=== PATIENT | female | born 1970 | race Caucasian/White ===

== ENCOUNTER 2016-11-07 10:19 | Inpatient (IN) | payer BC ==
[2016-11-01 09:17] VITALS: BMI 31.9
[2016-11-07] MEDS ORDERED: MIDAZOLAM HCL 2 MG/2 ML SINGLE DOSE VIAL ONE (12:28)
[2016-11-07] MEDS ORDERED: DEXAMETHASONE SOD PHOSPHATE/PF 10 MG/ML SDV ONE (12:28)
[2016-11-07] MEDS ORDERED: BUPIVACAINE HCL/PF 2.5 MG/ML - 30 ML VIAL IJ ONE (12:28)
[2016-11-07] MEDS ORDERED: DOCUSATE SODIUM 100 MG CAPSULE (FP) PO PRN (12:53)
[2016-11-07] MEDS ORDERED: morphine CARPU-JECT 4 MG/1 ML DISP.SYRIN IVPB PRN (12:54)
[2016-11-07] MEDS ORDERED: ACETAMINOPHEN 325 MG TABLET (FP) PO PRN (12:54)
[2016-11-07] MEDS ORDERED: IBUPROFEN 800 MG/8 ML IJ IVPB PRN (12:56)
[2016-11-07] MEDS ORDERED: D5-1/2NS+20 MEQ KCL - 1,000 ML IV SCH (13:00)
[2016-11-07] MEDS ORDERED: LEVOFLOXACIN 500 MG IVPB 100 ML IVPB ONE (13:10)
[2016-11-07] MEDS ORDERED: HYDROmorphone HCL/PF 1 MG/ML VIAL (FOR PYXIS CHARGING ONLY) ONE (14:52)
[2016-11-07] MEDS ORDERED: ROCURONIUM BROMIDE 50 MG/5 ML VIAL ONE (14:56)
[2016-11-07] MEDS ORDERED: ONDANSETRON 4 MG/2 ML VIAL ONE (15:36)
[2016-11-07] MEDS ORDERED: DEXAMETHASONE SOD PHOSPHATE 4 MG/1 ML VIAL ONE (15:36)
[2016-11-07] MEDS ORDERED: GLYCOPYRROLATE 0.2 MG/1 ML VIAL ONE (15:36)
[2016-11-07] MEDS ORDERED: NEOSTIGMINE METHYLSULFATE 0.5 MG/ML - 10 ML MDV ONE ×2 (15:36→15:37)
[2016-11-07] MEDS ORDERED: LIDOCAINE HCL/PF 2% SDV 5ML VIAL ONE (15:36)
[2016-11-07] MEDS ORDERED: LACTATED RINGERS SOLUTION 1,000 ML IV SCH (16:00)
[2016-11-07] MEDS ORDERED: PROMETHAZINE HCL 25 MG/1 ML VIAL IVPUSH PRN (16:29)
[2016-11-07] MEDS: traMADol HCL 50 MG TABLET PO SCH ×2 (18:48→22:12)
[2016-11-07] MEDS: ONDANSETRON 4 MG/2 ML VIAL IVPB PRN (20:29)
[2016-11-07] MEDS: oxyCODONE HCL 5 MG TABLET PO PRN (20:30)
[2016-11-07] MEDS ORDERED: ONDANSETRON 4 MG/2 ML VIAL IVPB ONE (22:45)
[2016-11-08] MEDS: oxyCODONE HCL 5 MG TABLET PO PRN (01:44)
[2016-11-08] MEDS: ONDANSETRON 4 MG/2 ML VIAL IVPB PRN (03:18)
[2016-11-08] MEDS: traMADol HCL 50 MG TABLET PO SCH ×3 (04:10→10:00)
[2016-11-08 05:41] VITALS: BP 94/58; PULSE 89; TEMP 98.6
--- NOTE | 2016-11-08 07:32 | PN ---
Progress Note, Physician Chief Complaint: Pt s/p panniculectomy with c/o nausea overnight. Pain controlled. History of Present Illness: POD # s/p Panniculectomy - Current Medication List Current Medications: Active Medications Acetaminophen (Tylenol -) 650 mg PO Q4H PRN PRN Reason: FEVER OR PAIN Last Admin: 11/07/16 20:30 Dose: 650 mg Docusate Sodium (Colace -) 100 mg PO DAILY PRN PRN Reason: CONSTIPATION Enoxaparin Sodium (Lovenox -) 40 mg SQ DAILY [facility] Escitalopram Oxalate (Lexapro -) 20 mg PO DAILY [facility] Fentanyl (Sublimaze Injection -) 50 mcg IVPUSH [id number] PRN PRN Reason: PAIN Stop: 11/10/16 15:49 Last Admin: 11/07/16 17:00 Dose: 50 mcg Fentanyl (Sublimaze Injection -) 25 mcg IVPUSH [id number] PRN PRN Reason: PAIN Stop: 11/10/16 16:30 Pantoprazole Sodium (Protonix 40mg Ivpb (Pre-Docked)) 100 mls @ 200 mls/hr IVPB DAILY [facility] Potassium Chloride/Dextrose/Sod Cl (D5-1/2ns+20 Meq Kcl -) 1,000 mls @ 100 mls/ hr IV ASDIR [facility] Last Admin: 11/07/16 18:48 Dose: Not Given Lactated Ringer's (Lactated Ringers Solution) 1,000 mls @ 75 mls/hr IV ASDIR [facility] Last Admin: 11/07/16 18:48 Dose: Not Given Ibuprofen (Caldolor Injection -) 800 mg IVPB Q6H PRN PRN Reason: PAIN Morphine Sulfate (Morphine Injection -) 8 mg IVPB Q3H PRN PRN Reason: PAIN Ondansetron HCl (Zofran Injection) 4 mg IVPB Q6H PRN PRN Reason: NAUSEA Last Admin: 11/08/16 03:18 Dose: 4 mg Oxycodone HCl (Roxicodone -) 7.5 mg PO Q4H PRN PRN Reason: PAIN Last Admin: 11/08/16 01:44 Dose: 7.5 mg Tramadol HCl (Ultram -) 50 mg PO Q6H [facility] Last Admin: 11/08/16 04:10 Dose: Not Given - Objective Vital Signs: Vital Signs Temperature 98.6 F 08/03/17 05:39 Pulse Rate 89 11/08/16 05:39 Respiratory Rate 18 11/08/16 05:39 Blood Pressure 94/58 11/08/16 05:39 O2 Sat by Pulse Oximetry (%) 98 11/07/16 22:56 Constitutional: Yes: Well Nourished, Mild Distress Eyes: Yes: WNL HENT: Yes: WNL Neck: Yes: WNL Cardiovascular: Yes: WNL Respiratory: Yes: WNL Gastrointestinal: Yes: WNL, Normal Bowel Sounds, Soft, Other (Incision c/D/I. Dressing steri strips in place. FAIZA drains holding suction) ...Rectal Exam: Yes: Deferred Breast(s): Yes: WNL Musculoskeletal: Yes: WNL Extremities: Yes: WNL Edema: No Peripheral Pulses WNL: No Integumentary: Yes: WNL Wound/Incision: Yes: Clean/Dry, Steri Strips ...Motor Strength: WNL Psychiatric: Yes: WNL Additional Findings/Remarks: cont with abdominal binder cont with anti nausea cont with pain management Possible d/c home today
--- NOTE | 2016-11-08 08:49 | OP ---
DATE OF OPERATION: 11/07/2016 PREOPERATIVE DIAGNOSIS: Complex, chronically incarcerated incisional hernia. POSTOPERATIVE DIAGNOSIS: Complex, chronically incarcerated incisional hernia. PROCEDURE: Open repair of complex chronically incarcerated incisional hernia with mesh, bilateral component separation. SURGEON: Matthew Brooks MD BILINGUAL CASE MANAGER: Milind Luo DO ANESTHESIA: Juanita Mcdaniel MD (general). ESTIMATED BLOOD LOSS: Minimal. SPECIMEN: None. INDICATION FOR PROCEDURE: This is a 46-year-old female who complains of having pain in the mid abdomen. She also feels a fullness in this area as well. She went to several physicians and is noted to have a chronically incarcerated incisional hernia from her old laparoscopic cholecystectomy. She came to see me, and on physical examination due to her body habitus, had a paucity of findings; therefore, I ordered a CAT scan. The CT demonstrated findings consistent with a chronically incarcerated hernia. Therefore, she is here for operative repair. The patient also has seen a plastic surgery, Dr. Wilson, for a concomitant abdominoplasty. This will be done at the same setting. DESCRIPTION OF PROCEDURE: The patient was identified and appropriately positioned on the operating room table. After placement of general anesthesia, the abdomen was prepped and draped in the usual sterile fashion with ChloraPrep. Dr. Wilson then proceeded to perform portions of the abdominoplasty and give operative exposure. Once this was accomplished, I can in then to repair the hernia. At the time of my presentation in the operating room, the abdominal wall had been lifted off the anterior abdominal wall fashion. The defect in the fascia in the midline was identified. She had no defects overlying the trocar sites. The umbilicus was off the subcutaneous tissue and the defect clearly identified. Using an above technique without entering the abdominal cavity, the hernia identified and scored along its lateral edges. The rectus muscles were identified and retracted laterally and the posterior rectus sheath was identified. Using blunt dissection, the posterior sheath was off the undersurface of the rectus muscle. This was done on the patient's right side. Using a similar technique, the left side was evaluated and done as well. Due to the diastasis, the midline had to be sharply and the fascial bridges divided. This was done inferiorly first, and the superior aspect had a bigger diastasis. This was done in a similar fashion, and the insertions on either side were then sharply divided. Once this was completely circumferentially isolated and the sac reduced back beneath the rectus, the defect identified and measured to be at least 7.5 to 8 cm in size. Due to this generous defect, a large 15 x 30 piece of ProGrip was used for the operative repair as well as a 15 x 12 Ovitex bio mesh. Due to the generous size of this defect, to lay this in appropriately without having tension and to have this spread out beyond the weak , frayed out fibers, component separation and transversus abdominis release was performed on either side. Attention was focused to the right side first. The rectus muscle lifted and the posterior sheath pushed inferiorly toward the inferior aspect of the patient and the perforating vessels identified. The fascia just medial to the perforating vessels was then subsequently scored with the cautery, and the transversus was from the remainder of the rectus as well as the obliques. This was done for the length of the defect as well as approximately 4-5 cm above and below. This allow placement of the mesh well beyond the rectus insertion and into the obliques. Once this was done on the right side, a similar technique was used on the left side. The posterior rectus space identified. The rectus muscle lifted anteriorly and the posterior sheath was then from the rectus just medial to the perforating vessels with the cautery. This was done approximately 4-5 cm above the actual defect. In doing so, this allowed for placement of the mesh on the left side beyond the rectus insertion. The defect now measured once again, and the mesh chosen was the appropriate size. Two pieces of mesh were sewn together with interrupted 3-0 Vicryl suture. The Ovitex piece was placed on the posterior sheath side, and the ProGrip was placed just on the rectus muscular side. The mesh placed was appropriately positioned, fanned out as needed, and placed under the appropriate tension. The mesh was then loosely anchored with the [employer]ionspace[employer] anchors. This was placed at the 4 cardinal points as well as in the midline. The mesh itself was irrigated. The operative field examined and noted to be hemostatic. The fascia overlying the mesh was reapproximated with interrupted 0 Vicryl suture. The subsequent space irrigated. At this point, Dr. Wilson went on to continue to perform the abdominoplasty and address the diastasis. At the conclusion of my portion of the operation, the sponge and needle counts were correct. ATTESTATION: Brief operative note handwritten on the preprinted form. Rowena PAINTING [id number] MTDD
[2016-11-08] MEDS ORDERED: PANTOPRAZOLE SODIUM 100 ML IVPB SCH (10:00)
[2016-11-08] MEDS ORDERED: ENOXAPARIN NA (PORCINE) 40 MG/0.4 ML DISP.SYRIN SQ SCH (10:00)
[2016-11-08] MEDS ORDERED: ESCITALOPRAM OXALATE 20 MG TABLET (FP) PO SCH (10:00)
--- NOTE | 2016-11-08 10:07 | PN ---
Progress Note (short form) - Note Progress Note: ANESTHESIOLOGY POST-OP CHECK 46F s/p open ventral hernia repair under general anesthesia POD #1. No acute complaints, N/V resolved tolerating PO. Pain 6/10 and tolerable. Ambulating, voiding. Vital Signs Temperature 98.6 F 11/08/16 05:39 Pulse Rate 89 11/08/16 05:39 Respiratory Rate 18 11/08/16 05:39 Blood Pressure 94/58 11/08/16 05:39 O2 Sat by Pulse Oximetry (%) 98 11/07/16 22:56 Active Medications Acetaminophen (Tylenol -) 650 mg PO Q4H PRN PRN Reason: FEVER OR PAIN Last Admin: 11/07/16 20:30 Dose: 650 mg Docusate Sodium (Colace -) 100 mg PO DAILY PRN PRN Reason: CONSTIPATION Enoxaparin Sodium (Lovenox -) 40 mg SQ DAILY [facility] Last Admin: 11/08/16 09:19 Dose: 40 mg Escitalopram Oxalate (Lexapro -) 20 mg PO DAILY [facility] Last Admin: 11/08/16 09:19 Dose: 20 mg Fentanyl (Sublimaze Injection -) 50 mcg IVPUSH [id number] PRN PRN Reason: PAIN Stop: 11/10/16 15:49 Last Admin: 11/07/16 17:00 Dose: 50 mcg Fentanyl (Sublimaze Injection -) 25 mcg IVPUSH [id number] PRN PRN Reason: PAIN Stop: 11/10/16 16:30 Pantoprazole Sodium (Protonix 40mg Ivpb (Pre-Docked)) 100 mls @ 200 mls/hr IVPB DAILY [facility] Last Admin: 11/08/16 09:19 Dose: 200 mls/hr Potassium Chloride/Dextrose/Sod Cl (D5-1/2ns+20 Meq Kcl -) 1,000 mls @ 100 mls/ hr IV ASDIR [facility] Last Admin: 11/07/16 18:48 Dose: Not Given Lactated Ringer's (Lactated Ringers Solution) 1,000 mls @ 75 mls/hr IV ASDIR [facility] Last Admin: 11/07/16 18:48 Dose: Not Given Ibuprofen (Caldolor Injection -) 800 mg IVPB Q6H PRN PRN Reason: PAIN Last Admin: 11/08/16 09:19 Dose: 800 mg Morphine Sulfate (Morphine Injection -) 8 mg IVPB Q3H PRN PRN Reason: PAIN Ondansetron HCl (Zofran Injection) 4 mg IVPB Q6H PRN PRN Reason: NAUSEA Last Admin: 11/08/16 03:18 Dose: 4 mg Oxycodone HCl (Roxicodone -) 7.5 mg PO Q4H PRN PRN Reason: PAIN Last Admin: 11/08/16 01:44 Dose: 7.5 mg Tramadol HCl (Ultram -) 50 mg PO Q6H [facility] Last Admin: 11/08/16 04:10 Dose: Not Given Gen: Awake, alert No apparent anesthesia complications, pain controlled. Continue management as per primary team.
--- NOTE | 2016-11-09 11:16 | DS ---
DATE OF ADMISSION: 11/07/2016 DATE OF DISCHARGE: 11/08/2016 ADMITTING DIAGNOSIS: Repair of incarcerated ventral hernia, as well as abdominoplasty. DISCHARGE DIAGNOSIS: Repair of incarcerated ventral hernia, as well as abdominoplasty. BRIEF HISTORY: This is a 46-year-old female who presented to [facility] for repair of a chronically, complex, incarcerated incisional hernia. This was done utilizing a component separation and mesh. Please reference Dr. Matthew Brooks's operative report. She also had a concomitant abdominoplasty. Please reference Dr. Wilson's report. Postoperatively, she was admitted to the hospital. She required anti-nausea medication as well as narcotic pain medication. She has been discharged home today, November 08, tolerating diet and voiding. She will go home with Fausto-Tee drain. She will go home with a prescription for Percocet. She will follow with Dr. Wilson regarding timing of drain removal and with Dr. Brooks in approximately 2 weeks. DO DEIRDRE LESLIE/[id number]
--- NOTE | 2016-11-14 16:04 | PATH ---
Surgical Pathology Report Patient Name: RICCI CONNER Med. Rec. #: [id number] /Age/Gender: 1970 (Age: 46) / F Account: [id number] Location: [facility] Taken: 11/08/2016 Received: 11/08/2016 Reported: 11/14/2016 Physicians: Matthew Brooks Specimen(s) Received Abdominopalsty Clinical History Incisional hernia/obstruction Final Diagnosis ABDOMINAL SKIN AND TISSUE, ABDOMINOPLASTY: SKIN AND ADIPOSE TISSUE, DESCRIBED (GROSS EXAMINATION ONLY). Electronically Signed Sarah Garcia M.D. Gross Description Received in formalin labeled "abdominal skin and tissue 2835 g," is a 47.0 x 20.0 cm granda, irregular portion of skin excised to a depth of 5.5 cm. The epidermal surface is unremarkable. Sectioning reveals unremarkable yellow, lobulated adipose tissue. Also received within the same container is a 13.0 x 1.0 x 2.0 cm aggregate of fragments of yellow, lobulated, unremarkable adipose tissue. No lesions are identified. No sections are submitted, gross only. /11/08/2016 saudi11/08/2016
== END 2016-11-08 12:58 | disposition home or self-care (01) | DRG 355 ==
LOC: FASU 10:19 → FM/S 12:54
PROVIDERS: ADMIT Surgery; ATTEND Surgery
PROC: 0WUF0JZ Supplement Abdominal Wall with Synthetic Substitute, Open Approach (ICD-10-PCS; principal; 2016-11-07 13:31)
DX: K43.0 Incisional hernia with obstruction, without gangrene (principal)
CPT/HCPCS: 88300-TC; 94010; 94760